=== PATIENT | male | born 1985 | race Caucasian/White ===

== ENCOUNTER 2021-02-11 16:31 | Emergency (ER) | payer SELFPAY ==
[2021-02-11 16:52] VITALS: BP 161/95; PULSE 78; RESP 16; TEMP 36.8; O2SAT 97; BMI 28.0
--- NOTE | 2021-02-11 17:02 | W.ED.ANIMALB ---
HPI - Animal Bite General: Chief Complaint: Animal Bite Stated Complaint: dog bite Time Seen by Provider: 02/11/21 17:02 History of Present Illness: HPI narrative: 35-year-old male comes in with injury to the right index finger. Patient's 2 dogs were fighting and a bit at him causing injury to his right index finger. Patient has been observed to centimeter laceration to the volar aspect of the finger and 2 puncture wounds to the dorsal aspect. Normal range of motion is noted. Patient reports numbness in the finger. Cap refill is intact. Review of Systems General: Reports: 10 or more systems reviewed and unremarkable except in HPI and below Skin/Breast: Reports: other (Dog bite to right ring finger.) Physical Exam Const: COMMON NORMALS: no acute distress and patient oriented x3 GENERAL APPEARANCE: cooperative HENMT: COMMON NORMALS: normocephalic HEAD & SCALP: normal to inspection and normocephalic Eye: GENERAL EYE: appearance normal, both eyes and all related structures Neck/C-Spine: COMMON NORMALS: full ROM Chest: COMMONS NORMALS: normal inspection of the chest Resp: COMMON NORMALS: normal respiratory effort EFFORT & INSPECTION: Yes able to speak in complete sentences Cardio: COMMON NORMALS: regular rate and regular rhythm RATE: regular rate RHYTHM: regular rhythm GI: COMMON NORMALS: non-tender Extremity: NARRATIVE EXTREMITY EXAM: 2 cm laceration noted to the volar aspect of the right ring finger, it is at the PIP joint line. Patient also has 2 posterior puncture wounds to the dorsal aspect of the finger with no active bleeding. Patient has good range of motion he does have decreased sensation distally to the injury but prompt capillary refill. Neuro: COMMON NORMALS: patient oriented x3 and moves all extremities Psych: COMMON NORMALS: mental status grossly normal and cooperative Skin: COMMON NORMALS: no rashes or lesions noted GENERAL SKIN EXAM: no rashes or lesions noted Course Vital Signs: Vital signs: Vital Signs Temperature 98.2 F 02/11/21 16:52 Pulse Rate 78 02/11/21 16:52 Respiratory Rate 16 02/11/21 17:43 Blood Pressure 161/95 02/11/21 16:52 Pulse Oximetry 97 02/11/21 16:52 MDM - Animal Bite MDM Narrative: Medical decision making narrative: Patient comes in for injury to the right index finger from dog bite. There was noticeable 2 cm laceration, normal tendon function, some decreased sensation but normal cap refill. Differential diagnosis includes laceration, need for prophylaxis tetanus/rabies, need for prophylaxis antibiotics, fracture. X-ray noted no fractures. Wound may involve a nerve due to some decreased sensation distally to the injury. Tendon function seems to be normal. Wound was closed with 4 sutures loosely. Patient was started on Augmentin for prophylaxis antibiotic. Patient reported that his tetanus was up-to-date and the dog's vaccinations were up-to-date. Discharge Plan Discharge Patient Disposition: Home Clinical Impression: Dog bite Qualifiers: Encounter type: initial encounter Qualified Code(s): W54.0XXA - Bitten by dog, initial encounter Finger laceration Qualifiers: Encounter type: initial encounter Finger: ring finger Damage to nail status: without damage Foreign body presence: without foreign body Laterality: right Qualified Code(s): S61.214A - Laceration without foreign body of right ring finger without damage to nail, initial encounter Condition: Stable Prescriptions: New Augmentin 875-125 mg tablet 1 tab PO BID Qty: 14 RF: 0 Discharge Orders: Discharge ED (Routine); Ordered 02/11/21 Ordered By: Arpit Blevins Discharge Diet: Usual diet Discharge Activity: Increase activity as tolerated Patient Instructions: Finger Laceration (ED), Opioid Safety Activity Restrictions/Additional Instructions: Home and rest. Keep wound clean and dry. It is very important to keep the wound as dry as possible for the next 2 days. Increase activity as tolerated. Sutures need to come out in 7 days. Take antibiotic as directed twice a day for 7 days. Use acetaminophen and ibuprofen for pain. Keep wound splinted with bulky dressing. Follow-up with primary care in 3 days for recheck. Return to the ER for new concerns or worsening symptoms such as high fever, increased pain, or new concerns. 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
--- NOTE | 2021-02-11 17:18 | XRR_ITS ---
PROCEDURE INFORMATION: Exam: XR Right Hand Exam date and time: 02/11/2021 5:18 PM Age: 35 years old Clinical indication: Pain; Hand; Right; Additional info: Bite injury TECHNIQUE: Imaging protocol: XR Right hand. Views: 3 or more views. COMPARISON: No relevant prior studies available. FINDINGS: Bones/joints: Normal. Soft tissues: Normal. XR/XR hand RT min 3V* [id number] IMPRESSION: No acute findings. Radiation Dose CTDIVOL = (mGy): DLP = (mGy-cm)
[2021-02-11 17:43] VITALS: RESP 16
[2021-02-11] MEDS: amoxicillin-clav 875-125 mg Tablet 1 TAB PO (17:45)
[2021-02-11] MEDS: lidocaine 2% INJ 20 mL INJECTION (17:45)
== END 2021-02-11 18:13 | disposition home or self-care (01) ==
PROVIDERS: Emergency Provider Nurse Practitioner Family
DX: S61.250A Open bite of right index finger without damage to nail, initial encounter (principal); W54.0XXA Bitten by dog, initial encounter
CPT/HCPCS: 12001; 73130; 99283